=== PATIENT | male | born 1980 | race Caucasian/White ===

== ENCOUNTER → 2020-08-11 | Outpatient (CLI) | payer MEDICAID ==
[~2020-08-11] MED LIST: CARB200T PO; POTA-53 PO
--- NOTE | 2020-08-11 08:42 | Diagnostic Imaging Report ---
INDICATION: Scaphoid fracture AP, oblique and lateral views of the right wrist are obtained. Since 07/15/2020 there has been minimal change in mildly irregular fracture line through the midportion of the right scaphoid bone. There is mild adjacent sclerosis along the fracture line. There is questionable increasing density also present within the proximal pole of scaphoid bone. No other fracture or malalignment is identified. IMPRESSION: Scaphoid waist fracture with mild cortical irregularity and marginal sclerosis. There is questionable minimal early sclerosis also seen within the proximal pole which can be seen with avascular necrosis. If clinically warranted, consideration could be given to cross-sectional imaging with CT or MRI for followup. Dictated by: Dictated on workstation # [id number]
== END ==
LOC: RAD FS 08:09
PROVIDERS: ATTEND Nurse Practitioner
DX: S62.024A Nondisplaced fracture of middle third of navicular [scaphoid] bone of right wrist, initial encounter for closed fracture (principal); X58.XXXA Exposure to other specified factors, initial encounter
CPT/HCPCS: 73110

== ENCOUNTER → 2020-09-01 | Outpatient (CLI) | payer MEDICAID ==
--- NOTE | 2020-09-01 09:42 | Diagnostic Imaging Report ---
INDICATION: Follow-up fracture FINDINGS: Healing scaphoid waist fractures in stable anatomic alignment. There was no evidence for necrosis of the proximal or distal pole. No adverse development. IMPRESSION: Anatomically aligned healing scaphoid waist fracture without radiographic findings to suggest necrosis. Dictated by: Dictated on workstation # [id number]
== END ==
LOC: RAD FS 08:54
PROVIDERS: ATTEND Nurse Practitioner
DX: S62.024D Nondisplaced fracture of middle third of navicular [scaphoid] bone of right wrist, subsequent encounter for fracture with routine healing (principal); X58.XXXD Exposure to other specified factors, subsequent encounter
CPT/HCPCS: 73110

== ENCOUNTER 2021-12-09 15:24 | Emergency (ER) | payer MEDICARE, MEDICAID ==
[~2021-12-09] VITALS: Ht 172.7 cm; Wt 73.0 kg
[2021-12-09] MEDS ORDERED: ANTACID SUSP 30 ML UDC (MYLANTA) PO ONE (15:45)
[2021-12-09] MEDS ORDERED: LIDOCAINE 2% VISCOUS 15 ML UDC PO ONE (15:45)
[2021-12-09] MEDS ORDERED: ASPIRIN 81 MG CHEW (CHILDREN'S ASA) PO ONE (15:45)
[2021-12-09 15:46] LABS: BASOPHILS # (AUTO) 0.1 10^3/uL (0.0-0.1); BASOPHILS % (AUTO) 1 % (0-10); EOSINOPHILS # (AUTO) 0.1 10^3/uL (0.0-0.3); EOSINOPHILS % (AUTO) 2 % (0-10); HEMATOCRIT 46 % (40-54); HEMOGLOBIN 15.7 g/dL (13.3-17.7); LYMPHOCYTES # (AUTO) 3.5 X 10^3 (1.0-4.0); LYMPHOCYTES % (AUTO) 46 % (12-44); MEAN CORPUSCULAR HEMOGLOBIN 32 pg (25-34); MEAN CORPUSCULAR HGB CONC 34 g/dL (32-36); MEAN CORPUSCULAR VOLUME 93 fL (80-99); MEAN PLATELET VOLUME 9.5 fL (9.0-12.2); MONOCYTES # (AUTO) 0.7 X 10^3 (0.0-1.0); MONOCYTES % (AUTO) 10 % (0-12); NEUTROPHILS # (AUTO) 3.2 X 10^3 (1.8-7.8); NEUTROPHILS % (AUTO) 42 % (42-75); PLATELET COUNT 249 10^3/uL (130-400); WHITE BLOOD COUNT 7.7 10^3/uL (4.3-11.0)
[2021-12-09 15:50] LABS: PROTHROMBIN TIME PATIENT 13.6 SEC (12.2-14.7)
[2021-12-09 16:01] LABS: ALANINE AMINOTRANSFERASE 15 U/L (0-55); ALBUMIN 4.6 GM/DL (3.2-4.5); ALKALINE PHOSPHATASE 77 U/L (40-136); BILIRUBIN,TOTAL < 0.2 MG/DL (0.1-1.0); BUN/CREATININE RATIO 11; CARBON DIOXIDE 28 MMOL/L (21-32); CHLORIDE 100 MMOL/L (98-107); GFR ESTIMATED 111; GLUCOSE 105 MG/DL (70-105); LIPASE 42 U/L (8-78); MAGNESIUM 1.9 MG/DL (1.6-2.4); POTASSIUM 3.8 MMOL/L (3.6-5.0); SODIUM 139 MMOL/L (135-145); TOTAL PROTEIN 7.3 GM/DL (6.4-8.2)
--- NOTE | 2021-12-09 16:05 | Diagnostic Imaging Report ---
INDICATION: Chest pain. COMPARISON: No prior examination is available for comparison. FINDINGS: The heart size, mediastinal configuration, and pulmonary vascularity are within normal limits. There is no pleural effusion, pneumothorax, or pneumonia. The osseous structures are unremarkable. IMPRESSION: No acute cardiopulmonary abnormality. Dictated by: Dictated on workstation # [id number]
--- NOTE | 2021-12-09 16:30 | ED Chest Pain ---
General Chief Complaint: Chest Pain Stated Complaint: EPILEPTIC,CHEST TIGHTNESS,TINGLING Nursing Triage Note: PT AMBULATE TO ROOM FS06 WITH C/O CHEST PRESSURE AFTER EATING FISH TODAY. Source: patient History of Present Illness Date Seen by Provider: Dec 09, 2021 Time Seen by Provider: 15:28 Initial Comments 41-year-old male presenting with complaints of tightness in the middle of his chest after eating fish. He states that he tried taking some Theresa-[place] but it did not seem to help the symptoms. He had some mild nausea with the tightness in his chest. He has a history of seizures and was not sure if this was an aura for another seizure or if it was related back to what he had eaten. He denies any trauma to his abdomen chest. He has been having some pain in his left shoulder that he attributes to riding a bike recently. He denies having any shortness of breath, pain going into his neck or jaw, sweating, abdominal pain. Symptoms resolving as he came to the ED. The symptoms started around lunch time when he ate [employer] Fish. Timing/Duration: 1-3 hours Severity/Quality: moderate Location: central Radiation: no radiation Activities at Onset: other (after eating fish) Prior CP/Workup: no prior chest pain Modifying Factors: worse with eating (eating the fish seemed to cause his symptoms) ASA po PRACTICE CONSULTANT: No NTG SL PRACTICE CONSULTANT: No Associated Symptoms: No abdominal pain, No back pain, No diaphoresis, No dizziness, No edema, No fatigue, No fever/chills, No headache, No heartburn; nausea/vomiting (nausea but no emesis); No rash, No shortness of breath, No swelling/lump in chest, No syncope, No weakness Allergies and Home Medications Allergies Coded Allergies: codeine (Verified Adverse Reaction, Unknown, "makes me tired", 07/15/20) Patient Home Medication List Home Medication List Reviewed: Yes Carbamazepine (Tegretol) 200 Mg Tablet, 600 MG PO BID Prescribed by: SADE LIN on 07/15/201534 Potassium Chloride (K-Tab ER) 20 Meq Tablet.er, 20 MEQ PO DAILY Prescribed by: SADE GHOSHSTAPOLINAR on 07/15/206 Review of Systems Review of Systems Constitutional: No chills, No fever EENTM: No Symptoms Reported Respiratory: No Symptoms Reported Cardiovascular: Chest Pain Gastrointestinal: See HPI Genitourinary: No Symptoms Reported Musculoskeletal: no symptoms reported, joint pain (intermittent left shoulder pain for last few weeks that he attributes to riding bike recently) Skin: no symptoms reported Psychiatric/Neurological: Anxiety Endocrine: No Symptoms Reported Hematologic/Lymphatic: No Symptoms Reported Past Yabowze-Gubmaw-Egiren Hx Patient Social History Tobacco Use?: No Smoking Status: Never a Smoker Smokeless Tobacco Frequency: Never a User Use of E-Cig and/or Vaping dev: No Use of E-Cig and/or Vaping Boby: Never a User Substance use?: No Alcohol Use?: No Pt feels they are or have been: No Seasonal Allergies Seasonal Allergies: No Past Medical History Surgery/Hospitalization HX: Seizures Surgeries: No Respiratory: No Cardiac: No Neurological: Yes Seizure Disorder Genitourinary: No Gastrointestinal: No Musculoskeletal: No Endocrine: No HEENT: No Cancer: No Psychosocial: No Integumentary: No Physical Exam Vital Signs Vital Signs - First Documented 12/09/21 12/09/21 15:29 16:43 Temp 36.2 Pulse 87 Resp 16 B/P (MAP) 121/87 (98) Pulse Ox 100 O2 Delivery Room Air Capillary Refill : Less Than 3 Seconds Height, Weight, BMI Height: '" Weight: lbs. oz. kg; 24.00 BMI Method: General Appearance: No Apparent Distress, WD/WN HEENT: PERRL/EOMI, Normal ENT Inspection, Pharynx Normal Neck: Full Range of Motion, Normal Inspection, Non Tender, Supple; No Carotid Bruit Respiratory: Chest Non Tender, Lungs Clear, Normal Breath Sounds, No Accessory Muscle Use, No Respiratory Distress Cardiovascular: Regular Rate, Rhythm, Normal Peripheral Pulses Gastrointestinal: Normal Bowel Sounds, No Pulsatile Mass, Non Tender, Soft Rectal: Deferred Extremity: Normal Capillary Refill, Normal Inspection, No Calf Tenderness, No Pedal Edema Neurologic/Psychiatric: Alert, Oriented x3, field sales engineer II-XII Norm as Tested Skin: Normal Color, Warm/Dry Progress/Results/Core Measures Results/Orders Lab Results Laboratory Tests Test 12/09/21 14:32 Range/Units White Blood Count 7.7 4.3-11.0 10^3/uL Red Blood Count 4.95 4.30-5.52 10^6/uL Hemoglobin 15.7 13.3-17.7 g/dL Hematocrit 46 40-54 % Mean Corpuscular Volume 93 80-99 fL Mean Corpuscular Hemoglobin 32 25-34 pg Mean Corpuscular Hemoglobin Concent 34 32-36 g/dL Red Cell Distribution Width 13.2 10.0-14.5 % Platelet Count 249 130-400 10^3/uL Mean Platelet Volume 9.5 9.0-12.2 fL Immature Granulocyte % (Auto) 0 % Neutrophils (%) (Auto) 42 42-75 % Lymphocytes (%) (Auto) 46 H 12-44 % Monocytes (%) (Auto) 10 0-12 % Eosinophils (%) (Auto) 2 0-10 % Basophils (%) (Auto) 1 0-10 % Neutrophils # (Auto) 3.2 1.8-7.8 X 10^3 Lymphocytes # (Auto) 3.5 1.0-4.0 X 10^3 Monocytes # (Auto) 0.7 0.0-1.0 X 10^3 Eosinophils # (Auto) 0.1 0.0-0.3 10^3/uL Basophils # (Auto) 0.1 0.0-0.1 10^3/uL Immature Granulocyte # (Auto) 0.0 0.0-0.1 10^3/uL Prothrombin Time 13.6 12.2-14.7 SEC INR Comment 1.0 0.8-1.4 Activated Partial Thromboplast Time 25 24-35 SEC Sodium Level 139 135-145 MMOL/L Potassium Level 3.8 3.6-5.0 MMOL/L Chloride Level 100 98-107 MMOL/L Carbon Dioxide Level 28 21-32 MMOL/L Anion Gap 11 5-14 MMOL/L Blood Urea Nitrogen 10 7-18 MG/DL Creatinine 0.90 0.60-1.30 MG/DL Estimat Glomerular Filtration Rate 111 BUN/Creatinine Ratio 11 Glucose Level 105 70-105 MG/DL Calcium Level 9.0 8.5-10.1 MG/DL Corrected Calcium 8.5-10.1 MG/DL Magnesium Level 1.9 1.6-2.4 MG/DL Total Bilirubin < 0.2 0.1-1.0 MG/DL Aspartate Amino Transf (AST/SGOT) 14 5-34 U/L Alanine Aminotransferase (ALT/SGPT) 15 0-55 U/L Alkaline Phosphatase 77 40-136 U/L Myoglobin 21.7 10.0-92.0 NG/ML Troponin I < 0.30 <0.30 NG/ML Pro-B-Type Natriuretic Peptide 15.0 <75.0 PG/ML Total Protein 7.3 6.4-8.2 GM/DL Albumin 4.6 H 3.2-4.5 GM/DL Lipase 42 8-78 U/L My Orders Orders - CALLI GRIMALDO MD Cbc With Automated Diff (12/09/21 15:41) Magnesium (12/09/21 15:41) Chest 1 View Ap/Pa Only (12/09/21 15:41) Ekg Tracing (12/09/21 15:41) Comprehensive Metabolic Panel (12/09/21 15:41) Myoglobin Serum (12/09/21 15:41) Protime With Inr (12/09/21 15:41) Partial Thromboplastin Time (12/09/21 15:41) O2 (12/09/21 15:41) Monitor-Rhythm Ecg Trace Only (12/09/21 15:41) Aspirin Chewable Tablet (Baby Aspirin Ch (12/09/21 15:45) Ed Iv/Invasive Line Start (12/09/21 15:41) Lipase (12/09/21 15:41) Troponin I Fs (12/09/21 15:41) Probnp Fs (12/09/21 15:41) Lidocaine 2% Viscous 15 Ml (Xylocaine Vi (12/09/21 15:45) Antacid Suspension (Mylanta Suspension (12/09/21 15:45) Medications Given in ED Current Medications Medications Dose Ordered Sig/Turner Route Start Time Stop Time Status Last Admin Dose Admin Al Hydrox/Mg Hydrox/Simethicone 30 ml ONCE ONCE PO 12/09/21 15:45 12/09/21 15:46 DC 12/09/21 15:49 30 ML Aspirin 324 mg ONCE ONCE PO 12/09/21 15:45 12/09/21 15:46 DC 12/09/21 15:49 324 MG Lidocaine HCl 15 ml ONCE ONCE PO 12/09/21 15:45 12/09/21 15:46 DC 12/09/21 15:49 15 ML Vital Signs/I&O 12/09/21 12/09/21 15:29 16:43 Temp 36.2 Pulse 87 89 Resp 16 17 B/P (MAP) 121/87 (98) 127/76 Pulse Ox 100 O2 Delivery Room Air Room Air Blood Pressure Mean: 98 Progress Progress Note #1: Progress Note Obtain electrocardiogram, chest x-ray, labs to evaluate his heart rate and general blood work. Try giving aspirin as well as GI cocktail to see if it helps with her symptoms. Differential diagnosis includes reflux with esophagitis, peptic ulcer disease, acute coronary syndrome, myocardial infarction, muscle strain, anxiety Progress Note #2: Progress Note Labs all appear stable without acute significant normality. His cardiac enzymes are negative. His chest x-ray is not showing any acute process. His electrocardiogram does not show any acute ST elevation. Counseled patient on results and he advised that he had no further symptoms were return of tightness in his chest since he had been treated here in the ED. Advised to avoid the physician felt that he had eaten today that seem to have caused the symptoms. Initial ECG Impression Date: Dec 09, 2021 Initial ECG Impression Time: 15:27 Initial ECG Rate: 88 Initial ECG Rhythm: Normal Sinus Initial ECG Comparisson: No Previous ECG Available Comment Normal sinus rhythm with a heart rate of [address] elevation. AL interval 146 ms. QT interval 318 ms with a QTc interval 385 ms. No prior tracing available for comparison. Diagnostic Imaging Diagonstic Imaging: Xray Plain Films/CT/US/NM/MRI: chest Comments [facility]. [place], [place] NAME: MELISA DAIZ [facility] REC#: [id number] PT STATUS: REG ER : 1980 PHYSICIAN: CALLI GRIMALDO MD ADMIT DATE: 12/09/21/ER FS Signed Date of Exam:12/09/21 CHEST 1 VIEW AP/PA ONLY INDICATION: Chest pain. COMPARISON: No prior examination is available for comparison. FINDINGS: The heart size, mediastinal configuration, and pulmonary vascularity are within normal limits. There is no pleural effusion, pneumothorax, or pneumonia. The osseous structures are unremarkable. IMPRESSION: No acute cardiopulmonary abnormality. Dictated by: Dictated on workstation # [id number] Dict: 12/09/21 1603 Trans: 12/09/21 1607 [facility] [id number] Interpreted by: VIKASH VILLASENOR MD Electronically signed by: VIKASH VILLASENOR MD 12/09/21 5837 Reviewed: Reviewed by Me Departure Impression Primary Impression: Chest tightness Additional Impressions: Non-cardiac chest pain Esophagitis Disposition: HOME, SELF-CARE Condition: Stable Departure-Patient Inst. Decision time for Depature: 16:29 Referrals: SELFBALJINDER MD (PCP/Family) Primary Care Physician Patient Instructions: Acid Reflux, Adult and Adolescent ED, Chest Pain, Adult ED Add. Discharge Instructions: Avoid eating fish and the food you had today since it may have caused your symptoms and made you feel worse. Follow up with clinic for continued concerns or further evaluation. All discharge instructions reviewed with patient and/or family. Voiced understanding. CALLI GRIMALDO MD Dec 09, 2021 16:30
[2021-12-09 16:43] VITALS: BP 127/76
== END 2021-12-09 16:43 | disposition home or self-care (01) ==
LOC: EDUNIT# 15:24 → ER FS 15:26
DX: K20.90 Esophagitis, unspecified without bleeding (principal); G40.909 Epilepsy, unspecified, not intractable, without status epilepticus; Z79.899 Other long term (current) drug therapy
CPT/HCPCS: 36415; 71045; 80053; 83690; 83735; 83874; 83880; 84484; 85025; 85610; 85730; 93005; 93041